=== PATIENT | male | born 1955 | race Caucasian/White ===

== ENCOUNTER 2024-06-05 06:04 | Day surgery (SDC) | payer OTHER, MEDICARE ==
[2024-06-04 09:14] VITALS: BMI 28.7
[2024-06-05] MEDS ORDERED: Heparin 10,000 UNITS/ 10 ML VIAL ONE (06:41)
[2024-06-05] MEDS ORDERED: GLYCOPYRROLATE/PF 0.2 MG/ML VIAL ONE (07:09)
[2024-06-05] MEDS ORDERED: ePHEDrine Sulfate 50 MG/10 ML VIAL ONE (07:09)
[2024-06-05] MEDS ORDERED: Etomidate 40 MG (20 mL) VIAL ONE (07:09)
[2024-06-05] MEDS ORDERED: KETAMINE 100 MG/ML (5ML VIAL) ONE (07:09)
[2024-06-05] MEDS ORDERED: PHENYLEPHRINE-NS 100 MCG/ML 10 ML SYRINGE ONE (07:09)
[2024-06-05] MEDS ORDERED: Lidocaine 2% PF 5 ML VIAL ONE (07:09)
[2024-06-05] MEDS ORDERED: Rocuronium Bromide 50 MG/5 ML VIAL ONE (07:10)
[2024-06-05] MEDS ORDERED: Dexamethasone 4 mg/ml Vial ONE (07:27)
[2024-06-05] MEDS ORDERED: Midazolam HCl 2 mg/2 ml Vial ONE (07:27)
[2024-06-05] MEDS ORDERED: fentaNYL 50 mcg/mL 1 mL Vial ONE (07:27)
[2024-06-05] MEDS ORDERED: Ondansetron PF 4 MG/2 ML Vial ONE (07:27)
[2024-06-05] MEDS ORDERED: Rocuronium Bromide 10 MG/ML (10ML VIAL) ONE (07:55)
[2024-06-05] MEDS ORDERED: CEFAZOLIN 2 GM VIAL ONE (08:51)
[2024-06-05] MEDS ORDERED: Gentamicin 80 MG/2 ML VIAL ONE (08:51)
[2024-06-05] MEDS ORDERED: SUGAMMADEX SODIUM 200 MG/2 ML VIAL ONE (10:25)
[2024-06-05] MEDS ORDERED: HYDROcodone/Acetaminophen 5/325 mg Tablet ONE (12:19)
== END 2024-06-05 14:03 | disposition home or self-care (01) ==
LOC: SDC 06:04
PROVIDERS: ATTEND Internal Medicine Cardiovascular Disease
PROC: 4A023FZ Measurement of Cardiac Rhythm, Percutaneous Approach (ICD-10-PCS; principal; 2024-06-05)
DX: I49.01 Ventricular fibrillation (principal); I47.20 Ventricular tachycardia, unspecified; I49.3 Ventricular premature depolarization; I50.22 Chronic systolic (congestive) heart failure; I25.10 Atherosclerotic heart disease of native coronary artery without angina pectoris; I25.5 Ischemic cardiomyopathy; E11.9 Type 2 diabetes mellitus without complications; Z79.84 Long term (current) use of oral hypoglycemic drugs; Z79.82 Long term (current) use of aspirin; Z79.899 Other long term (current) drug therapy
CPT/HCPCS: 33249; 71045; 93005; 93613; 93620; C1730; C1763; C1769; C1777; C1894; C1898; J1100; J1580; J1644; J2250; J2405; J3010; J3490